=== PATIENT | male | born 1950 | race Caucasian/White ===

== ENCOUNTER 2020-04-29 14:32 | Emergency (ER) | payer MEDICARE, MEDICAID ==
[~2020-04-29] VITALS: Ht 172.7 cm; Wt 64.0 kg
[2020-04-29 14:46] VITALS: BP 148/76
[2020-04-29] MEDS ORDERED: DIVA125T31 PO (15:11)
[2020-04-29] MEDS ORDERED: METF-416 PO (15:11)
[2020-04-29] MEDS ORDERED: AMLO5TAB88 MT (15:11)
[2020-04-29] MEDS ORDERED: LEVO25TA7 MT (15:11)
[2020-04-29] MEDS ORDERED: ASPI-1497 MT (15:11)
[2020-04-29] MEDS ORDERED: SITA100T11 MT (15:11)
[2020-04-29] MEDS ORDERED: LOSA50TA41 MT (15:11)
[2020-04-29] MEDS ORDERED: SIMV-43 PO (15:11)
[2020-04-29] MEDS ORDERED: FOLI-43 MT (15:11)
[2020-04-29] MEDS ORDERED: RISP2TAB22 PO (15:11)
[2020-04-29] MEDS ORDERED: DOCU-272 PO (15:11)
== END 2020-04-29 17:19 | disposition home or self-care (01) ==
LOC: ER 14:54
DX: R60.0 Localized edema (principal); F32.9 Major depressive disorder, single episode, unspecified; F20.9 Schizophrenia, unspecified; E78.00 Pure hypercholesterolemia, unspecified; Z79.82 Long term (current) use of aspirin
CPT/HCPCS: 71045; 93005; 93970; 99284

== ENCOUNTER 2020-11-19 11:50 | Emergency (ER) | payer MEDICARE, MEDICAID ==
[~2020-11-19] VITALS: Ht 162.6 cm; Wt 68.0 kg
[~2020-11-19 11:50] MED LIST: AMLO5TAB88 MT; ASPI-1497 MT; DIVA125T31 PO; DOCU-272 PO; FOLI-43 MT; LEVO25TA7 MT; LOSA50TA41 MT; METF-416 PO; RISP2TAB85 PO; SIMV-43 PO; SITA100T11 MT
[2020-11-19 12:42] LABS: BASOPHILS % 1.4 % (0.0-2.0); EOSINOPHILS % 2.7 % (0.0-5.0); HEMATOCRIT. 30.5 % (42.0-52.0); HEMOGLOBIN. 10.3 g/dL (14.0-18.0); LYMPHOCYTES % 12.8 % (20.0-50.0); MEAN CORPUSCULAR HEMOGLOBIN 30.8 pg (28.0-32.0); MEAN CORPUSCULAR VOLUME 91.4 fL (80.0-94.0); MEAN PLATELET VOLUME 9.2 fl (7.4-10.4); MONOCYTES % 12.7 % (2.0-8.0); NEUTROPHILS % 70.4 % (40.0-76.0); PLATELET 172 x1000/uL (130-400); RED BLOOD CELL COUNT 3.34 mill/uL (4.7-6.1); RED CELL DISTRIBUTION WIDTH 13.1 % (11.6-14.6)
[2020-11-19 12:49] LABS: CHLORIDE 108 mEq/L (98-107)
[2020-11-19 12:53] LABS: PROTHROMBIN TIME 10.9 sec (9.6-11.0)
[2020-11-19 12:56] LABS: BETA HYDROXYBUTYRATE 0.1 mMol/L (0.0-0.3)
[2020-11-19 14:25] LABS: CLARITY URINE CLEAR (CLEAR); COLOR URINE YELLOW (YELLOW); KETONES URINE NEGATIVE (NEGATIVE); LEUKOCYTE ESTERASE URINE NEGATIVE (NEGATIVE); NITRITE URINE NEGATIVE (NEGATIVE); OCCULT BLOOD URINE NEGATIVE (NEGATIVE); PH URINE 6.5 (4.5-8.0); PROTEIN URINE 3+ (NEGATIVE); SPECIFIC GRAVITY URINE 1.018 (1.005-1.030); UROBILINOGEN URINE 0.2 E.U./dL (0.2-1.0)
[2020-11-19 15:00] VITALS: BP 176/72
== END 2020-11-19 16:54 | disposition home or self-care (01) ==
LOC: ER 11:50
DX: E11.65 Type 2 diabetes mellitus with hyperglycemia (principal); I10 Essential (primary) hypertension; Z79.899 Other long term (current) drug therapy; Z79.82 Long term (current) use of aspirin; Z98.890 Other specified postprocedural states; Z86.59 Personal history of other mental and behavioral disorders
CPT/HCPCS: 36415; 71045; 80053; 81003; 82010; 82962; 83036; 84484; 85025; 93005; 99285

== ENCOUNTER 2023-02-08 16:56 | Emergency (ER) | payer MEDICARE, MEDICAID ==
[~2023-02-08] VITALS: Ht 162.6 cm; Wt 61.2 kg
[~2023-02-08 16:56] MED LIST changes: +DOCU-268 PO; -DOCU-272 PO; -METF-416 PO
[2023-02-08 17:14] VITALS: BP 156/65
[2023-02-08] MEDS ORDERED: LIDOCAINE HCL 1% 20ML VIAL (Pyxis) INJ INFIL ONE (18:30)
== END 2023-02-08 19:46 | disposition home or self-care (01) ==
LOC: ER 16:56
DX: S60.051A Contusion of right little finger without damage to nail, initial encounter (principal); F31.9 Bipolar disorder, unspecified; I10 Essential (primary) hypertension; E11.9 Type 2 diabetes mellitus without complications; F20.9 Schizophrenia, unspecified; W23.0XXA Caught, crushed, jammed, or pinched between moving objects, initial encounter; Y93.89 Activity, other specified; Y92.89 Other specified places as the place of occurrence of the external cause; Y99.8 Other external cause status
CPT/HCPCS: 73140; 99284; J3490

== ENCOUNTER 2023-02-10 16:36 | Emergency (ER) | payer MEDICARE, MEDICAID ==
[~2023-02-10] VITALS: Ht 162.6 cm; Wt 61.0 kg
[2023-02-10 17:02] VITALS: BP 153/63
== END 2023-02-10 19:09 | disposition home or self-care (01) ==
LOC: ER 16:36
DX: Z48.00 Encounter for change or removal of nonsurgical wound dressing (principal); I10 Essential (primary) hypertension; E11.9 Type 2 diabetes mellitus without complications; Z79.899 Other long term (current) drug therapy; Z98.890 Other specified postprocedural states; Z86.59 Personal history of other mental and behavioral disorders; Z79.82 Long term (current) use of aspirin
CPT/HCPCS: 99281

== ENCOUNTER 2024-01-21 10:26 | Inpatient (IN) | payer MEDICARE, MEDICAID ==
[~2024-01-21] VITALS: Ht 162.6 cm; Wt 61.7 kg
[~2024-01-21 10:26] MED LIST changes: -ASPI-1497 MT; +HYDR50TA40 MT; +RISP-29 PO; -RISP2TAB85 PO
[2024-01-21 12:55] LABS: HEMATOCRIT. 29.1 % (42.0-52.0); HEMOGLOBIN. 9.9 g/dL (14.0-18.0); MEAN CORPUSCULAR HEMOGLOBIN 31.5 pg (28.0-32.0); MEAN CORPUSCULAR HGB CONC 34.1 g/dL (31.0-37.0); MEAN CORPUSCULAR VOLUME 92.4 fL (80.0-94.0); MEAN PLATELET VOLUME 9.2 fl (7.4-10.4); PLATELET 202 x1000/uL (130-400); RED BLOOD CELL COUNT 3.15 mill/uL (4.7-6.1); RED CELL DISTRIBUTION WIDTH 12.8 % (11.6-14.6); WHITE BLOOD COUNT 14.7 x1000/uL (4.5-11.0)
[2024-01-21 13:00] LABS: POTASSIUM 3.1 mEq/L (3.5-5.1)
[2024-01-21 13:01] LABS: CALCIUM 10.1 mg/dL (8.7-10.4)
[2024-01-21 13:05] LABS: CREATININE 4.5 mg/dL (0.6-1.3)
[2024-01-21 13:46] LABS: DIFFERENTIAL COMMENT 1
[2024-01-21 14:24] LABS: PLATELET ESTIMATE NORMAL
[2024-01-21] MEDS ORDERED: POTASSIUM CHLORIDE 20MEQ/PACKET PO ONE (14:30)
[2024-01-21 14:53] LABS: CHLORIDE 101 mEq/L (98-107); POTASSIUM 3.4 mEq/L (3.5-5.1); SODIUM 138 mEq/L (136-145)
[2024-01-21 14:56] LABS: CALCIUM 10.2 mg/dL (8.7-10.4); CARBON DIOXIDE 26 mEq/L (21-32)
[2024-01-21 15:01] LABS: CREATININE 4.5 mg/dL (0.6-1.3); GLUCOSE 289 mg/dL (70-105); UREA NITROGEN BLOOD 87 mg/dL (9-23)
[2024-01-21 15:03] LABS: ALANINE AMINOTRANSFERASE 8 IU/L (10-49); ALBUMIN 4.7 g/dL (3.2-4.8); ASPARTATE AMINOTRANSFERASE 14 IU/L (<34); BILIRUBIN TOTAL 0.4 mg/dL (0.1-1.0); PROTEIN TOTAL 7.7 g/dL (6.0-8.3)
[2024-01-21] MEDS: POTASSIUM CHLORIDE 20MEQ/PACKET PO NR (19:10)
[2024-01-21 20:28] LABS: PROTHROMBIN TIME 11.4 sec (9.6-11.0)
[2024-01-21] MEDS ORDERED: ONDANSETRON HCL 4MG/2ML INJ IV PRN (22:45)
[2024-01-21] MEDS ORDERED: MORPHINE SULFATE 2 MG/ML CPJ (NOT FOR IM USE) IV PRN (22:45)
[2024-01-21] MEDS ORDERED: IPRATROPIUM/ALBUTEROL 0.5-3(2.5)MG/3ML NEB HHN PRN (22:45)
[2024-01-21] MEDS ORDERED: LORAZEPAM 2MG/ML INJ IV PRN (22:45)
[2024-01-21] MEDS ORDERED: MAGNESIUM/ALUMINUM HYDROXIDE/SIMETHICONE 30ML UDC PO PRN (22:45)
[2024-01-21] MEDS ORDERED: DEXTROSE 50% WATER 50ML SYRINGE IV PRN (22:45)
[2024-01-21] MEDS: DEXT 5%/0.45% NACL 1000ML 1,000 ML IV SCH (23:25)
[2024-01-21] MEDS: HYDROCODONE/ACETAMINOPHEN 5/325MG TABLET PO PRN (23:26)
[2024-01-21] MEDS ORDERED: DOCUSATE SODIUM 100MG CAPSULE PO SCH (23:30)
[2024-01-22] VITALS: BP 155/78; PULSE 92; RESP 18; TEMP 98.1
[2024-01-22] MEDS: VANCOMYCIN 1.25GM PMX (XELLIA) 250 ML IV NR (00:15)
[2024-01-22] MEDS: PIPERACILLIN/TAZO 3.375G/50ML 50 ML IV SCH (00:15)
[2024-01-22 02:18] LABS: PHOSPHORUS 4.9 mg/dL (2.5-4.9)
[2024-01-22 04:00] VITALS: BP 151/66; PULSE 62; RESP 19; TEMP 98.1
[2024-01-22] MEDS: KCL 20MEQ/100ML PREMIX 100 ML IV NR (04:08)
[2024-01-22 06:02] LABS: CALCIUM 9.7 mg/dL (8.7-10.4)
[2024-01-22 06:07] LABS: CREATININE 4.4 mg/dL (0.6-1.3)
[2024-01-22 06:08] LABS: ALBUMIN 4.2 g/dL (3.2-4.8)
[2024-01-22 06:11] LABS: THYROID STIMULATING HORMONE 2.96 uIU/mL (0.55-4.78)
[2024-01-22 06:13] LABS: CREATINE KINASE MB FRACTION 2.1 ng/mL (0.5-3.6); TROPONIN I HIGH SENSITIVITY 32 ng/L (3.0-53)
[2024-01-22 06:14] LABS: CREATINE KINASE 99 IU/L (46-171)
[2024-01-22 06:23] LABS: HEMATOCRIT. 26.8 % (42.0-52.0); HEMOGLOBIN. 9.3 g/dL (14.0-18.0); MEAN CORPUSCULAR HEMOGLOBIN 31.7 pg (28.0-32.0); MEAN CORPUSCULAR HGB CONC 34.6 g/dL (31.0-37.0); MEAN CORPUSCULAR VOLUME 91.7 fL (80.0-94.0); MEAN PLATELET VOLUME 9.7 fl (7.4-10.4); PLATELET 206 x1000/uL (130-400); RED BLOOD CELL COUNT 2.93 mill/uL (4.7-6.1); RED CELL DISTRIBUTION WIDTH 12.5 % (11.6-14.6)
[2024-01-22 06:24] LABS: DIFFERENTIAL COMMENT 1
[2024-01-22] MEDS: BLOOD SUGAR DIAGNOSTIC STRIP TEST SCH (06:50)
[2024-01-22 08:00] VITALS: BP 159/78; PULSE 100; RESP 19; TEMP 97.7
[2024-01-22 08:07] LABS: POTASSIUM 2.5 mEq/L (3.5-5.1)
[2024-01-22] MEDS ORDERED: NALOXONE HCL 0.4MG/ML VIAL IV PRN (08:30)
[2024-01-22] MEDS: PANTOPRAZOLE SODIUM 40 MG/VIAL IV SCH (09:00)
[2024-01-22] MEDS: AMLODIPINE 5MG TABLET PO SCH (09:00)
[2024-01-22] MEDS ORDERED: PANTOPRAZOLE SODIUM 40 MG/VIAL IV SCH (09:00)
[2024-01-22] MEDS: DIVALPROEX SODIUM 125MG SPRINKLE CAPSULE PO SCH (09:00)
[2024-01-22] MEDS ORDERED: LOSARTAN 50 MG TABLET PO SCH (09:00)
[2024-01-22] MEDS: KCL 20MEQ/100ML PREMIX 100 ML IV SCH ×2 (09:11→19:23)
[2024-01-22] MEDS ORDERED: DIATR MEGLU/DIATRIZOATE SOLN 120ML ONE (10:11)
[2024-01-22] MEDS ORDERED: PROPOFOL 200MG/20ML VIAL IV ONE (12:13)
[2024-01-22] MEDS ORDERED: LABETALOL 5MG/ML 4ML INJ IV PRN (12:30)
[2024-01-22] MEDS ORDERED: HYDROMORPHONE HCL/PF 2MG/ML CPJ IV PRN (12:30)
[2024-01-22] MEDS ORDERED: ONDANSETRON HCL 4MG/2ML INJ IV PRN (12:30)
[2024-01-22] MEDS ORDERED: MEPERIDINE HCL/PF 25MG/ML CPJ IV PRN (12:30)
[2024-01-22] MEDS: INSULIN LISPRO 100 UNITS/ML SUBCUT SCH (12:50)
[2024-01-22 14:57] LABS: POTASSIUM 3.1 mEq/L (3.5-5.1)
[2024-01-22] MEDS: NA PHOS,M-B/NA PHOS,DI-BA ENEMA 118ML PR SCH (15:00)
[2024-01-22 15:06] LABS: CREATINE KINASE MB FRACTION 2.2 ng/mL (0.5-3.6)
[2024-01-22 16:00] VITALS: BP 139/58; PULSE 78; RESP 18; TEMP 96.5
[2024-01-22] MEDS: LEVOTHYROXINE SODIUM 25MCG TABLET PO SCH (19:21)
[2024-01-22 20:00] VITALS: BP 134/65; PULSE 77; RESP 20; TEMP 97.9
[2024-01-22 20:13] LABS: PLATELET ESTIMATE NORMAL
[2024-01-22] MEDS: ATORVASTATIN CALCIUM 40MG TABLET PO SCH (21:00)
[2024-01-23] VITALS: BP 131/67; PULSE 75; RESP 20; TEMP 97.5
[2024-01-23 04:00] VITALS: BP 113/66; PULSE 80; RESP 20; TEMP 97.9
[2024-01-23 06:52] LABS: CHLORIDE 106 mEq/L (98-107); POTASSIUM 3.7 mEq/L (3.5-5.1); SODIUM 143 mEq/L (136-145)
[2024-01-23 06:53] LABS: CARBON DIOXIDE 22 mEq/L (21-32)
[2024-01-23 06:54] LABS: CALCIUM 9.6 mg/dL (8.7-10.4)
[2024-01-23 06:58] LABS: GLUCOSE 190 mg/dL (70-105); IRON 27 ug/dL (65-175)
[2024-01-23 06:59] LABS: UREA NITROGEN BLOOD 78 mg/dL (9-23)
[2024-01-23 07:00] LABS: CREATINE KINASE 72 IU/L (46-171)
[2024-01-23 07:01] LABS: PHOSPHORUS 3.4 mg/dL (2.5-4.9); TOTAL IRON BINDING CAPACITY 223 ug/dl (250-425)
[2024-01-23 07:09] LABS: BASOPHILS % 0.5 % (0.0-2.0); EOSINOPHILS % 0.9 % (0.0-5.0); MEAN CORPUSCULAR HEMOGLOBIN 31.8 pg (28.0-32.0); MEAN CORPUSCULAR HGB CONC 34.5 g/dL (31.0-37.0); MEAN CORPUSCULAR VOLUME 92.2 fL (80.0-94.0); MEAN PLATELET VOLUME 9.4 fl (7.4-10.4); MONOCYTES % 11.2 % (2.0-8.0); NEUTROPHILS % 81.4 % (40.0-76.0); PLATELET 188 x1000/uL (130-400); RED BLOOD CELL COUNT 2.82 mill/uL (4.7-6.1); RED CELL DISTRIBUTION WIDTH 12.6 % (11.6-14.6); WHITE BLOOD COUNT 13.2 x1000/uL (4.5-11.0)
[2024-01-23 07:10] LABS: FERRITIN 187 ng/mL (22-322); FOLIC ACID (FOLATE) SERUM 17.58 ng/mL (>5.38); VITAMIN B12 SERUM 362 pg/mL (211-911)
[2024-01-23 08:00] VITALS: BP 124/68; PULSE 77; RESP 19; TEMP 97.9
[2024-01-23 08:07] LABS: DIFFERENTIAL COMMENT 1
[2024-01-23 12:00] VITALS: BP 140/64; PULSE 81; RESP 18; TEMP 98.8
[2024-01-23 16:00] VITALS: BP 146/71; PULSE 83; RESP 19; TEMP 98
[2024-01-23 20:00] VITALS: BP 90/54; PULSE 75; RESP 20; TEMP 97.9
[2024-01-23] MEDS: VANCOMYCIN 500MG PREMIX 100 ML IV SCH (22:27)
[2024-01-24] VITALS: BP 153/67; PULSE 82; RESP 20; TEMP 98.1
[2024-01-24 05:14] LABS: CARBON DIOXIDE 21 mEq/L (21-32); CHLORIDE 106 mEq/L (98-107); HEMATOCRIT. 28.6 % (42.0-52.0); HEMOGLOBIN. 9.7 g/dL (14.0-18.0); MEAN CORPUSCULAR HEMOGLOBIN 31.8 pg (28.0-32.0); MEAN CORPUSCULAR HGB CONC 33.9 g/dL (31.0-37.0); MEAN CORPUSCULAR VOLUME 93.9 fL (80.0-94.0); MEAN PLATELET VOLUME 9.5 fl (7.4-10.4); PLATELET 225 x1000/uL (130-400); POTASSIUM 3.2 mEq/L (3.5-5.1); RED BLOOD CELL COUNT 3.04 mill/uL (4.7-6.1); RED CELL DISTRIBUTION WIDTH 12.5 % (11.6-14.6); SODIUM 144 mEq/L (136-145)
[2024-01-24 05:15] LABS: CALCIUM 9.4 mg/dL (8.7-10.4)
[2024-01-24 05:20] LABS: CREATININE 3.7 mg/dL (0.6-1.3); GLUCOSE 185 mg/dL (70-105); UREA NITROGEN BLOOD 66 mg/dL (9-23)
[2024-01-24 05:22] LABS: PHOSPHORUS 3.6 mg/dL (2.5-4.9)
[2024-01-24 05:24] LABS: DIFFERENTIAL COMMENT 1
[2024-01-24 05:33] LABS: OVALOCYTES 2+; PLATELET ESTIMATE NORMAL
[2024-01-24 05:34] LABS: GIANT PLATELETS FEW
[2024-01-24] MEDS ORDERED: PROPOFOL 200MG/20ML VIAL IV ONE (11:23)
[2024-01-24] MEDS ORDERED: LIDOCAINE HCL 1% 10 MG/ML 10ML VIAL ONE (11:23)
[2024-01-24] MEDS ORDERED: HYDROMORPHONE HCL/PF 2MG/ML CPJ IV PRN (12:45)
[2024-01-24] MEDS ORDERED: MEPERIDINE HCL/PF 25MG/ML CPJ IV PRN (12:45)
[2024-01-24] MEDS ORDERED: LABETALOL 5MG/ML 4ML INJ IV PRN (12:45)
[2024-01-24] MEDS ORDERED: ONDANSETRON HCL 4MG/2ML INJ IV PRN (12:45)
[2024-01-24] MEDS: KCL 20MEQ/100ML PREMIX 100 ML IV NR (19:00)
[2024-01-24 20:00] VITALS: BP 129/58; PULSE 68; RESP 20; TEMP 97.7
[2024-01-25] VITALS: BP 131/49; PULSE 69; RESP 20; TEMP 97.7
[2024-01-25 04:00] VITALS: BP 138/60; PULSE 70; RESP 20; TEMP 97.6
[2024-01-25 06:44] LABS: BASOPHILS % 0.8 % (0.0-2.0); EOSINOPHILS % 3.4 % (0.0-5.0); HEMATOCRIT. 23.8 % (42.0-52.0); HEMOGLOBIN. 8.2 g/dL (14.0-18.0); LYMPHOCYTES % 10.2 % (20.0-50.0); MEAN CORPUSCULAR HGB CONC 34.5 g/dL (31.0-37.0); MEAN CORPUSCULAR VOLUME 92.9 fL (80.0-94.0); MEAN PLATELET VOLUME 9.2 fl (7.4-10.4); MONOCYTES % 14.4 % (2.0-8.0); NEUTROPHILS % 71.2 % (40.0-76.0); PLATELET 193 x1000/uL (130-400); RED BLOOD CELL COUNT 2.56 mill/uL (4.7-6.1); RED CELL DISTRIBUTION WIDTH 12.4 % (11.6-14.6)
[2024-01-25 06:54] LABS: CARBON DIOXIDE 22 mEq/L (21-32); CHLORIDE 110 mEq/L (98-107); POTASSIUM 2.9 mEq/L (3.5-5.1); SODIUM 144 mEq/L (136-145)
[2024-01-25 06:55] LABS: CALCIUM 8.8 mg/dL (8.7-10.4)
[2024-01-25 06:59] LABS: CREATININE 3.2 mg/dL (0.6-1.3)
[2024-01-25 07:00] LABS: GLUCOSE 213 mg/dL (70-105); UREA NITROGEN BLOOD 53 mg/dL (9-23)
[2024-01-25 07:02] LABS: PHOSPHORUS 3.3 mg/dL (2.5-4.9)
[2024-01-25 08:00] VITALS: BP 154/64; PULSE 72; RESP 18; TEMP 98.1
[2024-01-25 12:00] VITALS: BP 152/62; PULSE 71; RESP 19; TEMP 96.1
[2024-01-25] MEDS: POTASSIUM CHLORIDE 20MEQ TABLET SR PO NR (14:02)
[2024-01-25] MEDS: KCL 20MEQ/100ML PREMIX 100 ML IV SCH (14:02)
[2024-01-25] MEDS: VANCOMYCIN 1GM/200ML PMX (BAXTER) IV NR (14:02)
[2024-01-25 16:00] VITALS: BP 150/67; PULSE 71; RESP 20; TEMP 97.8
[2024-01-25 20:00] VITALS: BP 140/58; PULSE 68; RESP 19; TEMP 97.5
[2024-01-25 21:17] LABS: CALCIUM 8.6 mg/dL (8.7-10.4)
[2024-01-25] MEDS: KCL 20MEQ/100ML PREMIX 100 ML IV PRN (22:11)
[2024-01-26 04:00] VITALS: BP 150/59; PULSE 68; RESP 20; TEMP 97.5
[2024-01-26 06:55] LABS: BASOPHILS % 1.1 % (0.0-2.0); EOSINOPHILS % 2.7 % (0.0-5.0); HEMATOCRIT. 24.5 % (42.0-52.0); HEMOGLOBIN. 8.4 g/dL (14.0-18.0); LYMPHOCYTES % 7.1 % (20.0-50.0); MEAN CORPUSCULAR HEMOGLOBIN 31.4 pg (28.0-32.0); MEAN CORPUSCULAR HGB CONC 34.3 g/dL (31.0-37.0); MEAN CORPUSCULAR VOLUME 91.6 fL (80.0-94.0); MEAN PLATELET VOLUME 9.1 fl (7.4-10.4); MONOCYTES % 11.6 % (2.0-8.0); NEUTROPHILS % 77.5 % (40.0-76.0); PLATELET 185 x1000/uL (130-400); RED BLOOD CELL COUNT 2.67 mill/uL (4.7-6.1); RED CELL DISTRIBUTION WIDTH 12.2 % (11.6-14.6); WHITE BLOOD COUNT 12.7 x1000/uL (4.5-11.0)
[2024-01-26 07:14] LABS: CARBON DIOXIDE 19 mEq/L (21-32); CHLORIDE 111 mEq/L (98-107); CREATININE 2.9 mg/dL (0.6-1.3); POTASSIUM 3.1 mEq/L (3.5-5.1); SODIUM 143 mEq/L (136-145)
[2024-01-26 07:15] LABS: CALCIUM 8.6 mg/dL (8.7-10.4)
[2024-01-26 07:20] LABS: GLUCOSE 156 mg/dL (70-105)
[2024-01-26 07:21] LABS: UREA NITROGEN BLOOD 42 mg/dL (9-23)
[2024-01-26 07:22] LABS: PHOSPHORUS 2.6 mg/dL (2.5-4.9)
[2024-01-26 08:00] VITALS: BP 136/60; PULSE 70; RESP 21; TEMP 96.5
[2024-01-26] MEDS: POTASSIUM CHLORIDE IV SCH (11:21)
[2024-01-26] MEDS: DEXT IV SCH (11:21)
[2024-01-26] MEDS: MAGNESIUM 2 G PREMIX 50 ML IV NR (11:21)
[2024-01-26] MEDS: NACL IV SCH (11:21)
[2024-01-26 12:00] VITALS: BP 150/60; PULSE 73; RESP 20; TEMP 98.9
[2024-01-26] MEDS ORDERED: POTASSIUM CHLORIDE 20 MEQ in DEXT 5% WATER 90 ML IV ONE (13:00)
[2024-01-26] MEDS: KCL 20MEQ/100ML PREMIX 100 ML IV NR (13:50)
[2024-01-26 16:00] VITALS: BP 143/60; PULSE 69; RESP 21; TEMP 98.1
[2024-01-26 20:00] VITALS: BP 140/60; PULSE 67; RESP 19; TEMP 99
[2024-01-27] VITALS: BP 138/62; PULSE 72; RESP 19; TEMP 98.9
[2024-01-27 04:00] VITALS: BP 148/63; PULSE 62; RESP 19; TEMP 98.6
[2024-01-27 08:00] VITALS: BP 104/62; PULSE 65; RESP 19; TEMP 98.1
[2024-01-27 08:31] LABS: CARBON DIOXIDE 18 mEq/L (21-32); CHLORIDE 109 mEq/L (98-107); POTASSIUM 3.1 mEq/L (3.5-5.1); SODIUM 139 mEq/L (136-145)
[2024-01-27 08:32] LABS: CALCIUM 8.7 mg/dL (8.7-10.4)
[2024-01-27 08:37] LABS: CREATININE 2.7 mg/dL (0.6-1.3); GLUCOSE 184 mg/dL (70-105)
[2024-01-27 08:38] LABS: UREA NITROGEN BLOOD 33 mg/dL (9-23)
[2024-01-27 08:40] LABS: PHOSPHORUS 2.6 mg/dL (2.5-4.9)
[2024-01-27 08:47] LABS: HEMATOCRIT. 24.8 % (42.0-52.0); HEMOGLOBIN. 8.4 g/dL (14.0-18.0); MEAN CORPUSCULAR HEMOGLOBIN 31.6 pg (28.0-32.0); MEAN CORPUSCULAR HGB CONC 33.9 g/dL (31.0-37.0); MEAN CORPUSCULAR VOLUME 93.1 fL (80.0-94.0); MEAN PLATELET VOLUME 8.9 fl (7.4-10.4); PLATELET 203 x1000/uL (130-400); RED BLOOD CELL COUNT 2.66 mill/uL (4.7-6.1); RED CELL DISTRIBUTION WIDTH 12.5 % (11.6-14.6); WHITE BLOOD COUNT 12.2 x1000/uL (4.5-11.0)
[2024-01-27 08:49] LABS: DIFFERENTIAL COMMENT 1
[2024-01-27 12:00] VITALS: BP 159/66; PULSE 68; RESP 20; TEMP 98.4
[2024-01-27] MEDS: KCL 20MEQ/100ML PREMIX 100 ML IV SCH (13:49)
[2024-01-27 13:50] LABS: PLATELET ESTIMATE NORMAL; TOXIC VACUOLATION 1+
[2024-01-27] MEDS: NACL IV SCH (13:50)
[2024-01-27] MEDS: DEXT IV SCH (13:50)
[2024-01-27] MEDS: POTASSIUM ACETATE IV SCH (13:50)
[2024-01-27 16:00] VITALS: BP 144/64; PULSE 66; RESP 20; TEMP 98.5
[2024-01-28 07:14] LABS: HEMATOCRIT. 24.4 % (42.0-52.0); HEMOGLOBIN. 8.5 g/dL (14.0-18.0); MEAN CORPUSCULAR HEMOGLOBIN 31.8 pg (28.0-32.0); MEAN CORPUSCULAR HGB CONC 34.7 g/dL (31.0-37.0); MEAN CORPUSCULAR VOLUME 91.8 fL (80.0-94.0); PLATELET 198 x1000/uL (130-400); RED BLOOD CELL COUNT 2.66 mill/uL (4.7-6.1); RED CELL DISTRIBUTION WIDTH 12.3 % (11.6-14.6); WHITE BLOOD COUNT 12.4 x1000/uL (4.5-11.0)
[2024-01-28 07:25] LABS: DIFFERENTIAL COMMENT 1
[2024-01-28 07:39] LABS: CHLORIDE 109 mEq/L (98-107); POTASSIUM 3.2 mEq/L (3.5-5.1); SODIUM 139 mEq/L (136-145)
[2024-01-28 07:40] LABS: CARBON DIOXIDE 17 mEq/L (21-32)
[2024-01-28 07:41] LABS: CALCIUM 8.9 mg/dL (8.7-10.4)
[2024-01-28 07:43] LABS: UREA NITROGEN BLOOD 30 mg/dL (9-23)
[2024-01-28 07:46] LABS: CREATININE 2.6 mg/dL (0.6-1.3); GLUCOSE 159 mg/dL (70-105)
[2024-01-28 07:47] LABS: ALANINE AMINOTRANSFERASE 12 IU/L (10-49); ALBUMIN 3.4 g/dL (3.2-4.8); ASPARTATE AMINOTRANSFERASE 16 IU/L (<34)
[2024-01-28 07:48] LABS: BILIRUBIN DIRECT 0.2 mg/dL (<=3.0); BILIRUBIN TOTAL 0.4 mg/dL (0.1-1.0); PHOSPHORUS 2.7 mg/dL (2.5-4.9); PREALBUMIN 12.4 mg/dl (10.0-40.0)
[2024-01-28 08:00] VITALS: BP 158/67; PULSE 74; RESP 20; TEMP 97.9
[2024-01-28 12:00] VITALS: BP 143/55; PULSE 82; RESP 20; TEMP 97.7
[2024-01-28] MEDS: KCL 20MEQ/100ML PREMIX 100 ML IV NR (14:05)
[2024-01-28 16:00] VITALS: BP 137/57; PULSE 88; RESP 20; TEMP 97.9
[2024-01-28 17:51] LABS: PLATELET ESTIMATE NORMAL
[2024-01-28 20:00] VITALS: BP 151/60; PULSE 71; RESP 18; TEMP 97.7
[2024-01-29] VITALS: BP 155/66; PULSE 81; RESP 20; TEMP 98.1
[2024-01-29 04:00] VITALS: BP_SYST 118; BP_SYST 135; BP_DIAS 54; BP_DIAS 84; PULSE 76; PULSE 94; RESP 18; RESP 20; TEMP 97.2; TEMP 97.7
[2024-01-29 06:43] LABS: HEMATOCRIT. 24.3 % (42.0-52.0); HEMOGLOBIN. 8.5 g/dL (14.0-18.0); MEAN CORPUSCULAR HEMOGLOBIN 31.6 pg (28.0-32.0); MEAN CORPUSCULAR HGB CONC 35.1 g/dL (31.0-37.0); MEAN PLATELET VOLUME 8.9 fl (7.4-10.4); PLATELET 207 x1000/uL (130-400); RED CELL DISTRIBUTION WIDTH 12.4 % (11.6-14.6); WHITE BLOOD COUNT 12.2 x1000/uL (4.5-11.0)
[2024-01-29 06:52] LABS: DIFFERENTIAL COMMENT 1
[2024-01-29 07:07] LABS: CARBON DIOXIDE 18 mEq/L (21-32); CHLORIDE 108 mEq/L (98-107); POTASSIUM 3.1 mEq/L (3.5-5.1); SODIUM 137 mEq/L (136-145)
[2024-01-29 07:08] LABS: CALCIUM 8.3 mg/dL (8.7-10.4)
[2024-01-29 07:13] LABS: CREATININE 2.3 mg/dL (0.6-1.3); GLUCOSE 206 mg/dL (70-105); UREA NITROGEN BLOOD 27 mg/dL (9-23)
[2024-01-29 07:15] LABS: PHOSPHORUS 2.3 mg/dL (2.5-4.9)
[2024-01-29 08:00] VITALS: BP 147/63; PULSE 68; RESP 18; TEMP 97.9
[2024-01-29] MEDS ORDERED: MAGNESIUM 2 G PREMIX 50 ML IV NR (10:00)
[2024-01-29] MEDS ORDERED: POTASSIUM PHOSPHATE 15 MMOL in DEXT 5% WATER 245 ML IV NR (11:00)
[2024-01-29 12:00] VITALS: BP 144/72; PULSE 53; RESP 16; TEMP 97.6
[2024-01-29 16:00] VITALS: BP 169/64; PULSE 74; RESP 18; TEMP 98.6
[2024-01-29 17:13] LABS: CALCIUM 8.5 mg/dL (8.7-10.4)
[2024-01-29 17:16] LABS: HEMATOCRIT. 25.8 % (42.0-52.0); HEMOGLOBIN. 8.8 g/dL (14.0-18.0); MEAN CORPUSCULAR HEMOGLOBIN 31.4 pg (28.0-32.0); MEAN CORPUSCULAR HGB CONC 34.1 g/dL (31.0-37.0); MEAN CORPUSCULAR VOLUME 92.1 fL (80.0-94.0); MEAN PLATELET VOLUME 8.5 fl (7.4-10.4); PLATELET 251 x1000/uL (130-400); RED CELL DISTRIBUTION WIDTH 12.2 % (11.6-14.6); WHITE BLOOD COUNT 12.6 x1000/uL (4.5-11.0)
[2024-01-29 17:17] LABS: DIFFERENTIAL COMMENT 1
[2024-01-29 17:17] LABS: PLATELET ESTIMATE NORMAL
[2024-01-29 17:18] LABS: CREATININE 2.3 mg/dL (0.6-1.3)
[2024-01-29 17:20] LABS: ADD RBC MORPHOLOGY YES
[2024-01-29 17:52] LABS: PLATELET ESTIMATE NORMAL
[2024-01-30] VITALS: BP 145/57; PULSE 71; RESP 19; TEMP 97.8
[2024-01-30 04:00] VITALS: BP 129/59; PULSE 71; RESP 19; TEMP 97.8
[2024-01-30] MEDS ORDERED: SKIN ADHESIVE 0.7 GM EA TOP ONE (07:18)
[2024-01-30] MEDS ORDERED: BUPIVACAINE HCL/PF 0.5% (5MG/ML) 10ML ONE (07:19)
[2024-01-30 07:30] LABS: HEMATOCRIT. 24.6 % (42.0-52.0); HEMOGLOBIN. 8.5 g/dL (14.0-18.0); MEAN CORPUSCULAR HEMOGLOBIN 31.2 pg (28.0-32.0); MEAN CORPUSCULAR HGB CONC 34.5 g/dL (31.0-37.0); MEAN CORPUSCULAR VOLUME 90.5 fL (80.0-94.0); MEAN PLATELET VOLUME 9.3 fl (7.4-10.4); PLATELET 233 x1000/uL (130-400); RED BLOOD CELL COUNT 2.72 mill/uL (4.7-6.1); RED CELL DISTRIBUTION WIDTH 12.4 % (11.6-14.6); WHITE BLOOD COUNT 12.2 x1000/uL (4.5-11.0)
[2024-01-30 07:37] LABS: CALCIUM 8.4 mg/dL (8.7-10.4); CARBON DIOXIDE 19 mEq/L (21-32); CHLORIDE 108 mEq/L (98-107); POTASSIUM 2.9 mEq/L (3.5-5.1); SODIUM 139 mEq/L (136-145)
[2024-01-30] MEDS ORDERED: LIDOCAINE HCL/PF 1% 10 MG/ML 5ML VIAL ONE (07:37)
[2024-01-30] MEDS ORDERED: ROCURONIUM BROMIDE 10MG/ML VIAL 5ML IV ONE (07:37)
[2024-01-30] MEDS ORDERED: PROPOFOL 200MG/20ML VIAL IV ONE (07:38)
[2024-01-30] MEDS ORDERED: FENTANYL CITRATE/PF 50MCG/ML 2ML VIAL ONE (07:38)
[2024-01-30] MEDS ORDERED: MIDAZOLAM HCL 2 MG/2 ML VIAL ONE (07:39)
[2024-01-30 07:42] LABS: CREATININE 2.2 mg/dL (0.6-1.3)
[2024-01-30 07:43] LABS: GLUCOSE 200 mg/dL (70-105); UREA NITROGEN BLOOD 23 mg/dL (9-23)
[2024-01-30 07:45] LABS: PHOSPHORUS 2.2 mg/dL (2.5-4.9)
[2024-01-30 08:00] VITALS: BP 145/66; PULSE 69; RESP 18; TEMP 99
[2024-01-30 08:08] LABS: DIFFERENTIAL COMMENT 1
[2024-01-30] MEDS ORDERED: ONDANSETRON HCL 4MG/2ML INJ IV PRN ×2 (09:15→11:45)
[2024-01-30] MEDS ORDERED: NALOXONE HCL 0.4MG/ML VIAL IV PRN (09:30)
[2024-01-30] MEDS ORDERED: SUGAMMADEX SODIUM 200 MG/2 ML VIAL IV NR (11:30)
[2024-01-30] MEDS ORDERED: HYDROMORPHONE HCL/PF 2MG/ML CPJ IV PRN (11:45)
[2024-01-30] MEDS ORDERED: FENTANYL CITRATE/PF 50MCG/ML 2ML VIAL IV PRN (11:45)
[2024-01-30] MEDS ORDERED: MAGNESIUM 2 G PREMIX 50 ML IV SCH (13:00)
[2024-01-30 15:34] LABS: NUCLEATED RED BLOOD CELLS 4 /100 WBC
[2024-01-30 15:35] LABS: PLATELET ESTIMATE NORMAL
[2024-01-30 16:00] VITALS: BP 152/66; PULSE 75; RESP 18; TEMP 99
[2024-01-30] MEDS: MORPHINE SULFATE 2 MG/ML CPJ (NOT FOR IM USE) IV PRN (18:08)
[2024-01-30 20:00] VITALS: BP 137/60; PULSE 76; RESP 19; TEMP 97
[2024-01-30] MEDS: DEXT 5%/0.45% NACL KCL 20MEQ/L 1,000 ML IV SCH (20:00)
[2024-01-31] VITALS: BP 119/71; PULSE 67; RESP 18; TEMP 99.3
[2024-01-31] MEDS: MORPHINE SULFATE 4 MG/ML INJ (FOR IV/IM USE) IV PRN
[2024-01-31 04:00] VITALS: BP 129/56; PULSE 68; RESP 20; TEMP 98.6
[2024-01-31 07:39] LABS: HEMATOCRIT. 22.9 % (42.0-52.0); HEMOGLOBIN. 7.9 g/dL (14.0-18.0); MEAN CORPUSCULAR HEMOGLOBIN 31.1 pg (28.0-32.0); MEAN CORPUSCULAR HGB CONC 34.6 g/dL (31.0-37.0); MEAN CORPUSCULAR VOLUME 89.8 fL (80.0-94.0); PLATELET 245 x1000/uL (130-400); RED BLOOD CELL COUNT 2.55 mill/uL (4.7-6.1); RED CELL DISTRIBUTION WIDTH 12.1 % (11.6-14.6); WHITE BLOOD COUNT 18.8 x1000/uL (4.5-11.0)
[2024-01-31 07:54] LABS: CHLORIDE 106 mEq/L (98-107); DIFFERENTIAL COMMENT 1; POTASSIUM 3.9 mEq/L (3.5-5.1); SODIUM 135 mEq/L (136-145)
[2024-01-31 07:55] LABS: CALCIUM 8.1 mg/dL (8.7-10.4); CARBON DIOXIDE 21 mEq/L (21-32)
[2024-01-31 08:00] VITALS: BP 128/54; PULSE 69; RESP 19; TEMP 96.6
[2024-01-31 08:00] LABS: CREATININE 2.4 mg/dL (0.6-1.3); GLUCOSE 335 mg/dL (70-105); UREA NITROGEN BLOOD 26 mg/dL (9-23)
[2024-01-31 08:02] LABS: PHOSPHORUS 2.4 mg/dL (2.5-4.9)
[2024-01-31] MEDS: ENOXAPARIN 30MG/0.3ML SYR SUBCUT SCH (08:38)
[2024-01-31] MEDS ORDERED: ENOXAPARIN 40MG/0.4ML SYR SUBCUT SCH (09:00)
[2024-01-31 12:00] VITALS: BP 122/58; PULSE 68; RESP 19; TEMP 97.7
[2024-01-31 16:00] VITALS: BP 107/58; PULSE 67; RESP 67; TEMP 96
[2024-01-31 16:53] LABS: PLATELET ESTIMATE NORMAL
[2024-01-31] MEDS: DEXT 5%/0.9% NACL 1,000 ML IV SCH (17:21)
[2024-01-31] MEDS: MAGNESIUM 2 G PREMIX 50 ML IV SCH (18:38)
[2024-01-31 20:00] VITALS: BP 130/55; PULSE 63; RESP 19; TEMP 97.1
[2024-02-01] VITALS: BP 124/54; PULSE 65; RESP 20; TEMP 98.7
[2024-02-01 04:00] VITALS: BP 138/60; PULSE 70; RESP 16; TEMP 97.3
[2024-02-01 05:49] LABS: HEMATOCRIT. 23.4 % (42.0-52.0); HEMOGLOBIN. 8.2 g/dL (14.0-18.0); MEAN CORPUSCULAR HEMOGLOBIN 31.2 pg (28.0-32.0); MEAN CORPUSCULAR HGB CONC 34.9 g/dL (31.0-37.0); MEAN CORPUSCULAR VOLUME 89.3 fL (80.0-94.0); MEAN PLATELET VOLUME 8.8 fl (7.4-10.4); PLATELET 261 x1000/uL (130-400); RED BLOOD CELL COUNT 2.62 mill/uL (4.7-6.1); WHITE BLOOD COUNT 15.3 x1000/uL (4.5-11.0)
[2024-02-01 06:29] LABS: CHLORIDE 109 mEq/L (98-107); POTASSIUM 3.4 mEq/L (3.5-5.1); SODIUM 138 mEq/L (136-145)
[2024-02-01 06:30] LABS: CALCIUM 8.2 mg/dL (8.7-10.4); CARBON DIOXIDE 20 mEq/L (21-32)
[2024-02-01 06:35] LABS: CREATININE 2.6 mg/dL (0.6-1.3); GLUCOSE 262 mg/dL (70-105); UREA NITROGEN BLOOD 24 mg/dL (9-23)
[2024-02-01 06:38] LABS: PHOSPHORUS 1.6 mg/dL (2.5-4.9)
[2024-02-01 06:40] LABS: DIFFERENTIAL COMMENT 1
[2024-02-01 08:00] VITALS: BP 139/59; PULSE 67; RESP 18; TEMP 97.9
[2024-02-01 12:00] VITALS: BP 144/58; PULSE 72; RESP 18; TEMP 97.5
[2024-02-01] MEDS: POTASSIUM PHOSPHATE 30 MMOL in SODIUM CHLORIDE 0.9% 490 ML IV NR (13:12)
[2024-02-01 16:00] VITALS: BP 133/54; PULSE 69; RESP 18; TEMP 97.9
[2024-02-01 20:00] VITALS: BP 134/55; PULSE 68; RESP 18; TEMP 98.4
[2024-02-01 20:15] LABS: PLATELET ESTIMATE NORMAL
[2024-02-02] VITALS: BP 133/62; PULSE 70; RESP 18; TEMP 97
[2024-02-02 04:00] VITALS: BP 133/62; PULSE 70; RESP 18; TEMP 97.5
[2024-02-02 07:14] LABS: HEMATOCRIT. 23.5 % (42.0-52.0); HEMOGLOBIN. 8.2 g/dL (14.0-18.0); MEAN CORPUSCULAR HEMOGLOBIN 31.7 pg (28.0-32.0); MEAN CORPUSCULAR HGB CONC 34.9 g/dL (31.0-37.0); MEAN CORPUSCULAR VOLUME 90.9 fL (80.0-94.0); MEAN PLATELET VOLUME 8.5 fl (7.4-10.4); PLATELET 274 x1000/uL (130-400); RED BLOOD CELL COUNT 2.59 mill/uL (4.7-6.1); RED CELL DISTRIBUTION WIDTH 12.7 % (11.6-14.6); WHITE BLOOD COUNT 13.6 x1000/uL (4.5-11.0)
[2024-02-02 08:00] VITALS: BP 157/67; PULSE 71; RESP 20; TEMP 97.8
[2024-02-02 08:27] LABS: DIFFERENTIAL COMMENT 1
[2024-02-02 08:40] LABS: CARBON DIOXIDE 17 mEq/L (21-32); CHLORIDE 112 mEq/L (98-107); POTASSIUM 3.9 mEq/L (3.5-5.1); SODIUM 141 mEq/L (136-145)
[2024-02-02 08:42] LABS: CALCIUM 8.4 mg/dL (8.7-10.4)
[2024-02-02 08:46] LABS: ALBUMIN 3.3 g/dL (3.2-4.8); CREATININE 2.4 mg/dL (0.6-1.3); GLUCOSE 213 mg/dL (70-105)
[2024-02-02 08:47] LABS: TRIGLYCERIDE 94 mg/dL (0-150); UREA NITROGEN BLOOD 22 mg/dL (9-23)
[2024-02-02 12:00] VITALS: BP 139/64; PULSE 70; RESP 20; TEMP 97.8
[2024-02-02 15:42] LABS: PLATELET ESTIMATE NORMAL
[2024-02-02 16:00] VITALS: BP 144/60; PULSE 71; RESP 20; TEMP 97.7
[2024-02-02 20:00] VITALS: BP_SYST 62; PULSE 73; RESP 20; TEMP 97.6
[2024-02-02] MEDS: TOTAL PARENTERAL NUTRITION 1,600 ML IV SCH (21:55)
[2024-02-03] VITALS: BP 120/55; PULSE 64; RESP 18; TEMP 97.7
[2024-02-03 04:00] VITALS: BP 137/74; PULSE 69; RESP 18; TEMP 98
[2024-02-03 06:15] LABS: CHLORIDE 112 mEq/L (98-107); POTASSIUM 3.6 mEq/L (3.5-5.1); SODIUM 142 mEq/L (136-145)
[2024-02-03 06:18] LABS: CARBON DIOXIDE 20 mEq/L (21-32); HEMATOCRIT. 21.9 % (42.0-52.0); HEMOGLOBIN. 7.6 g/dL (14.0-18.0); MEAN CORPUSCULAR HGB CONC 34.4 g/dL (31.0-37.0); MEAN CORPUSCULAR VOLUME 90.1 fL (80.0-94.0); MEAN PLATELET VOLUME 8.7 fl (7.4-10.4); PLATELET 264 x1000/uL (130-400); RED BLOOD CELL COUNT 2.44 mill/uL (4.7-6.1); RED CELL DISTRIBUTION WIDTH 12.6 % (11.6-14.6); WHITE BLOOD COUNT 11.3 x1000/uL (4.5-11.0)
[2024-02-03 06:19] LABS: CALCIUM 8.2 mg/dL (8.7-10.4)
[2024-02-03 06:23] LABS: CREATININE 2.2 mg/dL (0.6-1.3); GLUCOSE 274 mg/dL (70-105)
[2024-02-03 06:24] LABS: ALANINE AMINOTRANSFERASE 14 IU/L (10-49); UREA NITROGEN BLOOD 26 mg/dL (9-23)
[2024-02-03 06:25] LABS: ALBUMIN 3.1 g/dL (3.2-4.8); ASPARTATE AMINOTRANSFERASE 20 IU/L (<34)
[2024-02-03 06:26] LABS: BILIRUBIN TOTAL 0.3 mg/dL (0.1-1.0); PHOSPHORUS 3.4 mg/dL (2.5-4.9); PROTEIN TOTAL 5.1 g/dL (6.0-8.3)
[2024-02-03 06:53] LABS: DIFFERENTIAL COMMENT 1
[2024-02-03 08:00] VITALS: BP 130/53; PULSE 67; RESP 20; TEMP 98.2
[2024-02-03 12:00] VITALS: BP 149/62; PULSE 69; RESP 17; TEMP 98.8
[2024-02-03 15:25] LABS: PLATELET ESTIMATE NORMAL
[2024-02-03 16:00] VITALS: BP 150/62; PULSE 68; RESP 17; TEMP 98.7
[2024-02-03] MEDS: MAGNESIUM 2 G PREMIX 50 ML IV NR (18:06)
[2024-02-03 20:00] VITALS: BP 137/54; PULSE 69; RESP 18; TEMP 96.7
[2024-02-03] MEDS: FAT EMULSIONS IV SCH (21:00)
[2024-02-04] VITALS: BP 150/59; PULSE 64; RESP 18; TEMP 97.9
[2024-02-04] MEDS: ACETAMINOPHEN 325MG TABLET PO PRN (01:15)
[2024-02-04 04:00] VITALS: BP 147/46; PULSE 65; RESP 18; TEMP 98.1
[2024-02-04 06:24] LABS: HEMATOCRIT. 22.7 % (42.0-52.0); HEMOGLOBIN. 7.9 g/dL (14.0-18.0); MEAN CORPUSCULAR HEMOGLOBIN 31.5 pg (28.0-32.0); MEAN CORPUSCULAR HGB CONC 34.9 g/dL (31.0-37.0); MEAN CORPUSCULAR VOLUME 90.3 fL (80.0-94.0); MEAN PLATELET VOLUME 8.4 fl (7.4-10.4); PLATELET 284 x1000/uL (130-400); RED BLOOD CELL COUNT 2.51 mill/uL (4.7-6.1); RED CELL DISTRIBUTION WIDTH 12.4 % (11.6-14.6); WHITE BLOOD COUNT 12.1 x1000/uL (4.5-11.0)
[2024-02-04 06:30] LABS: CHLORIDE 109 mEq/L (98-107); SODIUM 137 mEq/L (136-145)
[2024-02-04 06:32] LABS: CARBON DIOXIDE 20 mEq/L (21-32)
[2024-02-04 06:33] LABS: CALCIUM 8.5 mg/dL (8.7-10.4)
[2024-02-04 06:37] LABS: CREATININE 2.3 mg/dL (0.6-1.3)
[2024-02-04 06:38] LABS: GLUCOSE 295 mg/dL (70-105); UREA NITROGEN BLOOD 26 mg/dL (9-23)
[2024-02-04 06:39] LABS: ALBUMIN 3.4 g/dL (3.2-4.8)
[2024-02-04 06:40] LABS: ALANINE AMINOTRANSFERASE 31 IU/L (10-49); ASPARTATE AMINOTRANSFERASE 36 IU/L (<34); BILIRUBIN TOTAL 0.3 mg/dL (0.1-1.0); PHOSPHORUS 4.1 mg/dL (2.5-4.9); PROTEIN TOTAL 5.5 g/dL (6.0-8.3)
[2024-02-04 06:48] LABS: DIFFERENTIAL COMMENT 1
[2024-02-04 08:00] VITALS: BP 141/62; PULSE 62; RESP 19; TEMP 98.6
[2024-02-04 12:00] VITALS: BP 141/56; PULSE 63; RESP 18; TEMP 98.2
[2024-02-04 12:07] LABS: PLATELET ESTIMATE NORMAL
[2024-02-04 16:00] VITALS: BP 138/61; PULSE 65; RESP 19; TEMP 97.9
[2024-02-04] MEDS: AMLODIPINE 10MG TABLET PO SCH (17:36)
[2024-02-04] MEDS: DOCUSATE SODIUM 100MG CAPSULE PO PRN (17:48)
[2024-02-04 20:00] VITALS: BP 137/57; PULSE 68; RESP 18; TEMP 97.7
[2024-02-05] VITALS: BP 140/58; PULSE 72; RESP 18; TEMP 97.7
[2024-02-05 04:00] VITALS: BP 138/62; PULSE 71; RESP 18; TEMP 97.7
[2024-02-05 06:23] LABS: HEMATOCRIT. 23.4 % (42.0-52.0); HEMOGLOBIN. 8.1 g/dL (14.0-18.0); MEAN CORPUSCULAR HGB CONC 34.8 g/dL (31.0-37.0); MEAN CORPUSCULAR VOLUME 89.3 fL (80.0-94.0); PLATELET 303 x1000/uL (130-400); RED BLOOD CELL COUNT 2.62 mill/uL (4.7-6.1); RED CELL DISTRIBUTION WIDTH 12.5 % (11.6-14.6); WHITE BLOOD COUNT 12.4 x1000/uL (4.5-11.0)
[2024-02-05 06:27] LABS: CARBON DIOXIDE 19 mEq/L (21-32); CHLORIDE 108 mEq/L (98-107); POTASSIUM 4.3 mEq/L (3.5-5.1); SODIUM 135 mEq/L (136-145)
[2024-02-05 06:28] LABS: CALCIUM 8.2 mg/dL (8.7-10.4)
[2024-02-05 06:33] LABS: CREATININE 2.2 mg/dL (0.6-1.3); GLUCOSE 289 mg/dL (70-105); UREA NITROGEN BLOOD 28 mg/dL (9-23)
[2024-02-05 06:34] LABS: ALANINE AMINOTRANSFERASE 75 IU/L (10-49)
[2024-02-05 06:35] LABS: ALBUMIN 3.4 g/dL (3.2-4.8); ASPARTATE AMINOTRANSFERASE 75 IU/L (<34); BILIRUBIN TOTAL 0.2 mg/dL (0.1-1.0); PHOSPHORUS 3.3 mg/dL (2.5-4.9); PROTEIN TOTAL 5.7 g/dL (6.0-8.3)
[2024-02-05 07:23] LABS: DIFFERENTIAL COMMENT 1
[2024-02-05 08:00] VITALS: BP 129/55; PULSE 62; RESP 18; TEMP 97.3
[2024-02-05 12:00] VITALS: BP 135/50; PULSE 73; RESP 18; TEMP 97.1
[2024-02-05 13:46] VITALS: BP 135/50; PULSE 73; TEMP 97.1; O2SAT 96
[2024-02-05 17:11] LABS: PLATELET ESTIMATE NORMAL
== END 2024-02-05 15:10 | disposition home health service (06) | DRG 853 ==
LOC: ER 10:26 → 6EST 20:33
PROVIDERS: ADMIT Hospitalist; ATTEND Hospitalist
PROC: 0D9N8ZZ Drainage of Sigmoid Colon, Via Natural or Artificial Opening Endoscopic (ICD-10-PCS; 2024-01-22)
PROC: 0DSN8ZZ Reposition Sigmoid Colon, Via Natural or Artificial Opening Endoscopic (ICD-10-PCS; principal; 2024-01-25)
PROC: 0D9N8ZZ Drainage of Sigmoid Colon, Via Natural or Artificial Opening Endoscopic (ICD-10-PCS; 2024-01-25)
PROC: 0DTN0ZZ Resection of Sigmoid Colon, Open Approach (ICD-10-PCS; 2024-01-30)
PROC: 0D9N8ZZ Drainage of Sigmoid Colon, Via Natural or Artificial Opening Endoscopic (ICD-10-PCS; 2024-02-05)
DX: A41.9 Sepsis, unspecified organism (principal); K56.2 Volvulus; K56.600 Partial intestinal obstruction, unspecified as to cause; N17.9 Acute kidney failure, unspecified; N18.4 Chronic kidney disease, stage 4 (severe); E11.22 Type 2 diabetes mellitus with diabetic chronic kidney disease; I12.9 Hypertensive chronic kidney disease with stage 1 through stage 4 chronic kidney disease, or unspecified chronic kidney disease; E03.9 Hypothyroidism, unspecified; D64.9 Anemia, unspecified; F20.9 Schizophrenia, unspecified; F32.A Depression, unspecified; E11.65 Type 2 diabetes mellitus with hyperglycemia; E78.5 Hyperlipidemia, unspecified; K66.9 Disorder of peritoneum, unspecified; E87.6 Hypokalemia; R65.20 Severe sepsis without septic shock; K64.8 Other hemorrhoids; Z86.16 Personal history of COVID-19; Z83.3 Family history of diabetes mellitus; Z82.49 Family history of ischemic heart disease and other diseases of the circulatory system
CPT/HCPCS: 36415; 71045; 74018; 74176; 80048; 80053; 80061; 80076; 80202; 82040; 82550; 82553; 82607; 82728; 82746; 82962; 83036; 83540; 83550; 83605; 83735; 84100; 84132; 84134; 84145; 84443; 84478; 84484; 85025; 86850; 86900; 88305; 93970; 97162; 99285; C1893; C9113; J1650; J1815; J2250; J2270; J2543; J2704; J3010; J3370; J3475; J3480; J3490; J7040; J7042; J7060; Q9963

== ENCOUNTER 2024-09-26 12:51 | Emergency (ER) | payer MEDICARE, MEDICAID ==
[~2024-09-26] VITALS: Ht 162.6 cm; Wt 68.0 kg
[2024-09-26 13:06] VITALS: O2SAT 99
[2024-09-26] MEDS ORDERED: SODIUM CHLORIDE 0.9% 1,000 ML IV SCH (14:00)
[2024-09-26] MEDS ORDERED: SODIUM CHLORIDE 0.9% 1,000 ML IV ONE (14:00)
[2024-09-26 14:15] LABS: BASOPHILS % 0.7 % (0.0-2.0); HEMOGLOBIN. 9.3 g/dL (14.0-18.0); LYMPHOCYTES % 7.5 % (20.0-50.0); MEAN CORPUSCULAR HEMOGLOBIN 30.8 pg (28.0-32.0); MEAN CORPUSCULAR HGB CONC 33.1 g/dL (31.0-37.0); MEAN PLATELET VOLUME 9.2 fl (7.4-10.4); MONOCYTES % 10.3 % (2.0-8.0); NEUTROPHILS % 80.5 % (40.0-76.0); PLATELET 171 x1000/uL (130-400); RED BLOOD CELL COUNT 3.01 mill/uL (4.7-6.1); RED CELL DISTRIBUTION WIDTH 13.4 % (11.6-14.6); WHITE BLOOD COUNT 10.8 x1000/uL (4.5-11.0)
[2024-09-26 14:21] LABS: POTASSIUM 4.7 mEq/L (3.5-5.1)
[2024-09-26 14:22] LABS: CALCIUM 9.1 mg/dL (8.7-10.4)
[2024-09-26 14:28] LABS: PARTIAL THROMBOPLASTIN TIME 26.1 sec (23.4-31.0)
[2024-09-26 14:30] LABS: CREATININE 4.2 mg/dL (0.6-1.3)
[2024-09-26 14:36] VITALS: BP 107/65; PULSE 65; RESP 16; TEMP 36.94740; O2SAT 98
== END 2024-09-26 19:13 | disposition home or self-care (01) ==
LOC: ER 12:51 → CANBEDREQ 15:30 → ER 19:13
DX: K59.00 Constipation, unspecified (principal); I10 Essential (primary) hypertension; E11.9 Type 2 diabetes mellitus without complications; F31.9 Bipolar disorder, unspecified; Z79.899 Other long term (current) drug therapy; Z98.890 Other specified postprocedural states; Z86.59 Personal history of other mental and behavioral disorders
CPT/HCPCS: 36415; 71045; 74176; 80048; 85025; 86850; 86900; 99284